=== PATIENT | male | born 1970 | race Caucasian/White ===

== ENCOUNTER 2020-02-10 09:43 | Emergency (ER) | payer BC, OTHER ==
--- NOTE | 2020-02-10 10:10 | EDM.PDOC ---
ED HPI GENERAL MEDICAL PROBLEM - General Chief Complaint: General Stated Complaint: SOB/PANIC ATTACK Time Seen by Provider: 02/10/20 10:00 Source of Information: Reports: Patient History Limitations: Reports: No Limitations - History of Present Illness INITIAL COMMENTS - FREE TEXT/NARRATIVE: 49-year-old male presents to the ED with signs and symptoms of a panic attack. Patient has good insight into this as he used to suffer from panic attack disorder about 8 years ago. He has been relatively good up until this morning. An exceptional amount of stress over the last year having been furloughed from his job due to COVID-19 illness. Disrupted sleep pattern by history. Chronic use of suboxone 10 years for chronic pain relief. Also taking clonidine 0 .1mg usually every a.m. Patient states he went to bed finally about 230 to 3:00 this morning slept for may be 3-1/2 to 4 hours and then got up to bring his home from work. Subsequently he is unable to fall asleep and started to develop symptoms of throat closure rapid heartbeat shortness of breath and anxiety. Unable to relax enough to fall asleep again. Symptoms are somewhat improved after coming to the ED and speaking with nurse. Patient still has some degree of neck and throat pressure discomfort. Vital signs are otherwise normal. Onset: Today, Sudden Onset Date: 02/10/20 Onset Time: 07:00 Duration: Hour(s):, Constant, Getting Worse Location: Reports: Neck, Chest (Neck and throat pressure discomfort. Chest pressure discomfort with shortness of breath), Generalized (Generalized anxiety.) Quality: Reports: Other (No pain just a strong sense of doom.) Severity: Severe Improves with: Reports: None Worsens with: Reports: Other Context: Denies: Activity (To lay down and sleep.), Exercise, Lifting, Sick Contact, Trauma, Other Associated Symptoms: Reports: Loss of Appetite, Malaise, Shortness of Breath, Weakness, Other (Strong sense of doom with throat neck pressure discomfort.). Denies: No Other Symptoms, Confusion, Chest Pain, Cough, cough w sputum, Diaphoresis, Fever/Chills, Headaches, Nausea/Vomiting, Rash, Seizure, Syncope Treatments MANAGER GENERAL: Reports: Other Medication(s) Neck Pain Score (Numeric/FACES): 4 - Related Data Allergies Allergy/AdvReac Type Severity Reaction Status Date / Time clindamycin Allergy Rash Verified 02/10/20 09:52 Home Meds: Home Meds Escitalopram [Lexapro] 10 mg PO BEDTIME 12/21/13 [History] cloNIDine [Catapres] 0.1 mg PO BID 04/16/15 [History] Androgel. 4 pump TOP DAILY 04/20/15 [History] Buprenorphine [Butrans] 2.75 TID 09/30/15 [History] Lisinopril 10 mg PO DAILY 09/30/15 [History] LORazepam [Ativan] 0.5 mg PO TID PRN #12 tab 02/10/20 [Rx] Past Medical History - Past Health History Medical/Surgical History: Denies Medical/Surgical History Cardiovascular History: Reports: Hypertension Genitourinary History: Reports: Renal Calculus Musculoskeletal History: Reports: Back Pain, Chronic, Neck Pain, Chronic Psychiatric History: Reports: Addiction, Anxiety, Depression - Past Surgical History HEENT Surgical History: Reports: Tonsillectomy Other Musculoskeletal Surgeries/Procedures:: ankle surgery Social & Family History - Living Situation & Occupation Living situation: Reports: Occupation: Unemployed ED ROS GENERAL - Review of Systems Review Of Systems: See Below Constitutional: Reports: Malaise, Weakness, Fatigue. Denies: Fever, Chills, Weight Loss HEENT: Reports: No Symptoms Respiratory: Reports: Shortness of Breath, Other. Denies: Wheezing, Pleuritic Chest Pain Cardiovascular: Reports: Chest Pain (Mild central chest heaviness. Pressure heaviness.), Blood Pressure Problem, Dyspnea on Exertion, Lightheadedness, Palpitations. Denies: Claudication, Edema, Orthopnea Endocrine: Reports: Fatigue GI/Abdominal: Reports: Diarrhea (1 bout of large-volume diarrhea this morning after developing a generalized flushing sensation.) : Reports: Frequency Skin: Reports: Other (Right skin particular noted on both dorsal hands.) Neurological: Reports: Dizziness, Weakness. Denies: Confusion, Headache, Numbness, Paresthesia, Pre-Existing Deficit, Syncope, Tingling, Tremors, Trouble Speaking, Difficulty Walking, Change in Speech, Gait Disturbance Psychiatric: Reports: Anxiety (Panic attack symptoms eyes strong sense of doom central neck chest pressure discomfort shortness of breath) Hematologic/Lymphatic: Reports: No Symptoms Immunologic: Reports: No Symptoms ED EXAM, GENERAL - Physical Exam Exam: See Below Exam Limited By: No Limitations General Appearance: Alert, WD/WN, Mild Distress, Other (Temperature is 36.3 degr ees. Heart rate 70 in sinus respiratory was 20 with O2 sats of 99% room air initial BP was elevated 158/98. It subsequently improved to 148/90.) Eye Exam: Bilateral Eye: Normal Inspection (No scleral icterus or blepharal pallor.), PERRL Throat/Mouth: Normal Inspection, Normal Lips, Normal Oropharynx, Other Head: Atraumatic (Tongue is mildly dry.), Normocephalic, Other (Lowered signs of any head or facial trauma.). No: Facial Swelling, Facial Tenderness Neck: Normal Inspection, Supple, Non-Tender, Full Range of Motion. No: Carotid Bruit, Lymphadenopathy (L), Lymphadenopathy (R), Thyromegaly Respiratory/Chest: Lungs Clear (Mild tachypnea at rest.), Normal Breath Sounds, No Accessory Muscle Use, Respiratory Distress. No: Crackles, Rhonchi, Wheezing Cardiovascular: Normal Peripheral Pulses, Regular Rate, Rhythm, No Edema, No Gallop, No Murmur, No Rub Peripheral Pulses: 2+: Posterior Tibial (L), Posterior Tibial (R), Dorsalis Pedis (L), Dorsalis Pedis (R), 3+: Carotid (L), Carotid (R) GI/Abdominal: Soft, Non-Tender, No Organomegaly, No Abnormal Bruit, No Mass, Pelvis Stable, Abnormal Bowel Sounds (Overactive bowel sounds in all 4 quadrants) Back Exam: Normal Inspection, Full Range of Motion. No: CVA Tenderness (L), CVA Tenderness (R) Extremities: Normal Inspection, Normal Range of Motion, Non-Tender, No Pedal Edema, Normal Capillary Refill Neurological: Alert, Oriented, CN II-XII Intact, Normal Cognition Psychiatric: Anxious Skin Exam: Warm, Dry, Intact, Normal Color, Other (Very dry skin dorsal hands ie. dyshidrosis. He denies any obsessive-compulsive behaviors such as excessive handwashing.) Course - Vital Signs Last Recorded V/S: Last Vital Signs Temp 36.3 C 02/10/20 09:58 Pulse 70 02/10/20 09:58 Resp 20 02/10/20 09:58 BP 158/98 H 02/10/20 09:58 Pulse Ox 99 02/10/20 09:58 - Orders/Labs/Meds Meds: Medications Discontinued Medications Generic Name Dose Route Start Last Admin Trade Name Sabine PRN Reason Stop Dose Admin Lorazepam 0.5 mg 02/10/20 10:18 Ativan PO 02/10/20 10:19 ONETIME ONE - Radiology Interpretation Free Text/Narrative:: 49-year-old male presents to the ED with good insight into his current symptoms of anxiety and panic attack with strong sense of doom pressure in the neck throat and anterior chest. Patient used to have panic attacks 8 years ago but has been doing well up until this last day or 2. Disrupted sleep pattern may or may not be contributing to panic attack recurrence. He remains on Lexapro 5 mg once daily having been weaned down from 20 mg daily over the last year. Examination reveals no abnormalities with good air entry to both lung ferrara. Patient will be given Ativan 0.5 mg by mouth now. Prescription will be written for 12 tablets of the same medication to be used on a as needed basis for recurrence of similar attacks. If attacks continue over the next couple of days he will be instructed to increase his Lexapro from 5 to 10 mg a day for 5 days and then to a 20 mg dose daily to try and break the cycle of recurrent panic attacks. He will follow up with his primary care physician if any further problems occur. He is currently followed by pain management physician in [place]. Departure - Departure Time of Disposition: 10:35 Disposition: Home, Self-Care 01 Condition: Fair Clinical Impression: Panic attack - Discharge Information *PRESCRIPTION DRUG MONITORING PROGRAM REVIEWED*: Not Applicable *COPY OF PRESCRIPTION DRUG MONITORING REPORT IN PATIENT AVIVA: Not Applicable Prescriptions: LORazepam [Ativan] 0.5 mg PO TID PRN #12 tab PRN Reason: panic attack Referrals: Jett Miranda MD [Primary Care Provider] - Forms: ED Department Discharge Additional Instructions: Evaluation in the emergency room this morning in regards to development of a harvey ic attack with associated central chest pressure discomfort, shortness of breath and a strong sense of doom. As you indicated you had a past history of recurrent panic attacks 8 years ago but have been doing very well up until today. Perhaps mildly disrupted sleep pattern contributing to development of anxiety disorder/panic attacks. Current use of Lexapro 5 mg once daily. Suggest use of Ativan 0.5 mg given in the ED and may repeat every 8 hours if necessary for similar type feelings. Usually takes 45 minutes to an hour for this medication to work orally. You could repeat the dose if needed to get some sleep this morning. See how things go over the next few days. If symptoms persist suggest increasing her Lexapro to 10 mg daily for 7 days and then increase to 20 mg once daily if needed to bring the panic attacks under control long-term. Prescription written for Ativan tablet to be used 0.5 mg every 8 hours as necessary for panic attack symptom relief. Follow-up with personal physician if symptoms continue as further investigations may be in order such as thyroid gland function serum magnesium level etc. Sepsis Event Note (ED) - Focused Exam Vital Signs: Vital Signs Temp Pulse Resp BP Pulse Ox 02/10/20 09:58 36.3 C 70 20 158/98 H 99
[2020-02-10] MEDS ORDERED: LORazepam 0.5 MG Tab PO ONE (10:18)
[2020-02-10 10:38] VITALS: BP 135/87; PULSE 64
== END 2020-02-10 10:33 | disposition home or self-care (01) ==
LOC: JD.ED 09:43
DX: F41.0 Panic disorder [episodic paroxysmal anxiety] (principal); I10 Essential (primary) hypertension; F32.9 Major depressive disorder, single episode, unspecified; Z88.1 Allergy status to other antibiotic agents; Z79.899 Other long term (current) drug therapy
CPT/HCPCS: 99283; A9270

== ENCOUNTER 2024-12-02 09:26 | Emergency (ER) | payer BC ==
[2024-12-02 09:38] VITALS: BP 159/95; PULSE 68
== END 2024-12-02 10:08 | disposition home or self-care (01) ==
LOC: JD.ED 09:26
DX: F41.0 Panic disorder [episodic paroxysmal anxiety] (principal); I10 Essential (primary) hypertension; F17.200 Nicotine dependence, unspecified, uncomplicated; Z88.1 Allergy status to other antibiotic agents; Z79.899 Other long term (current) drug therapy
CPT/HCPCS: 99283